=== PATIENT | male | born 1975 | race Caucasian/White ===

== ENCOUNTER 2016-12-20 11:43 | Emergency (ER) | payer MEDICAID ==
[~2016-12-20] VITALS: Ht 172.7 cm; Wt 79.4 kg
[2016-12-20 12:06] VITALS: BP_SYST 114
[2016-12-20 13:40] VITALS: BP_SYST 121
== END 2016-12-20 13:40 | disposition home or self-care (01) ==
LOC: SED 11:43
DX: H72.91 Unspecified perforation of tympanic membrane, right ear (principal)
CPT/HCPCS: 99283

== ENCOUNTER 2017-05-28 03:17 | Emergency (ER) | payer MEDICAID ==
[~2017-05-28] VITALS: Ht 177.8 cm; Wt 79.4 kg
[2017-05-28 03:32] VITALS: BP_SYST 127
[2017-05-28 05:00] VITALS: BP_SYST 118
== END 2017-05-28 05:00 | disposition home or self-care (01) ==
LOC: SED 03:17
DX: H61.23 Impacted cerumen, bilateral (principal); H72.93 Unspecified perforation of tympanic membrane, bilateral
CPT/HCPCS: 99283